=== PATIENT | female | born 1960 | race Caucasian/White ===

== ENCOUNTER 2020-12-08 08:52 | Outpatient (REF) | payer OTHER, SELFPAY ==
--- NOTE | 2020-12-08 08:58 | MM_ITS ---
EXAMINATION: MM SCREENING DIGITAL BREAST TOMOSYNTHESIS, BILATERAL CLINICAL INFORMATION: Screening. Asymptomatic. The lifetime risk of breast cancer based on the Tyrer-Cuzick Model is 15%. COMPARISON: Mammography: 05/19/2019, 05/04/2018, 10/30/2017, 04/01/2017, 03/24/2017, 03/18/2016 TECHNIQUE: Digital breast tomosynthesis is performed in both the craniocaudal and mediolateral oblique views along with computer-aided detection (CAD). Synthesized 2D images are generated from the tomosynthesis. FINDINGS: The breasts are heterogeneously dense, which may obscure small masses (ACR BI-RADS breast composition Category c). The parenchymal pattern is similar to multiple prior exams dating back to 2016. Scattered asymmetries bilateral upper quadrants and MLO views are stable. There is no developing density or interval new architectural changes. No abnormal calcifications. The axilla and skin contours are unremarkable. MM/MM tomosynthesis screening BI IMPRESSION: No significant changes from prior studies. ASSESSMENT: BI-RADS 2: Benign RECOMMENDATION: Routine annual mammography screening. This patient's information was entered into a reminder system with a target due date for their next mammogram.
== END 2020-12-08 08:53 | disposition home or self-care (01) ==
LOC: HO.MAMMO 08:52
PROVIDERS: PCP Family Medicine; Visit Provider Family Medicine
DX: Z12.31 Encounter for screening mammogram for malignant neoplasm of breast (principal)
CPT/HCPCS: 77063; 77067

== ENCOUNTER 2021-12-18 08:28 | Outpatient (REF) | payer OTHER, SELFPAY ==
--- NOTE | ~2021-12-18 | MM_ITS ---
EXAMINATION: MM SCREENING DIGITAL BREAST TOMOSYNTHESIS, BILATERAL CLINICAL INFORMATION: Screening. Asymptomatic. The lifetime risk of breast cancer based on the Tyrer-Cuzick Model is 14%. COMPARISON: Mammography: 12/08/2020, 05/19/2019, 05/04/2018 TECHNIQUE: Digital breast tomosynthesis is performed in both the craniocaudal and mediolateral oblique views along with computer-aided detection (CAD). Synthesized 2D images are generated from the tomosynthesis. FINDINGS: The breasts are heterogeneously dense, which may obscure small masses (ACR BI-RADS breast composition Category c). There are no significant masses, abnormal calcifications, or other abnormalities. Parenchymal pattern is similar to prior studies. There is no developing density or architectural abnormality. The axilla and skin contours are unremarkable. No significant changes. MM/MM tomosynthesis screening BI IMPRESSION: No mammographic evidence of malignancy. ASSESSMENT: BI-RADS 1: Negative RECOMMENDATION: Routine annual mammography screening. This patient's information was entered into a reminder system with a target due date for their next mammogram.
== END 2021-12-18 08:29 | disposition home or self-care (01) ==
LOC: HO.MAMMO 08:28
PROVIDERS: PCP Family Medicine; Visit Provider Family Medicine
DX: Z12.31 Encounter for screening mammogram for malignant neoplasm of breast (principal)
CPT/HCPCS: 77063; 77067

== ENCOUNTER 2022-12-19 14:13 | Outpatient (REF) | payer OTHER, SELFPAY ==
--- NOTE | ~2022-12-19 | MM_ITS ---
EXAMINATION: MM SCREENING DIGITAL BREAST TOMOSYNTHESIS, BILATERAL CLINICAL INFORMATION: Screening. Asymptomatic. The lifetime risk of breast cancer based on the Tyrer-Cuzick Model is 16%. COMPARISON: Mammography: 12/18/2021, 12/08/2020, 05/19/2019 TECHNIQUE: Digital breast tomosynthesis is performed in both the craniocaudal and mediolateral oblique views along with computer-aided detection (CAD). Synthesized 2D images are generated from the tomosynthesis. FINDINGS: The breasts are heterogeneously dense, which may obscure small masses (ACR BI-RADS breast composition Category c). There are no significant masses, abnormal calcifications, or other abnormalities. No developing density or architectural abnormality. The axilla and skin contours are unremarkable. No significant changes from prior exams. MM/MM tomosynthesis screening BI IMPRESSION: No mammographic evidence of malignancy. ASSESSMENT: BI-RADS 1: Negative RECOMMENDATION: Routine annual mammography screening. This patient's information was entered into a reminder system with a target due date for their next mammogram.
== END 2022-12-19 14:14 | disposition home or self-care (01) ==
LOC: HO.MAMMO 14:13
PROVIDERS: PCP Family Medicine; Visit Provider Family Medicine
DX: Z12.31 Encounter for screening mammogram for malignant neoplasm of breast (principal)
CPT/HCPCS: 77063; 77067

== ENCOUNTER 2023-09-15 14:07 | Outpatient (AMB) | payer OTHER, SELFPAY ==
--- OUTSIDE RECORDS SUMMARY | 2023-09-15 14:09 | XMS_ITS | Continuity of Care Document ---
Author Name Unknown Organization [email or web address] Address [address] [place] [address]- Care Team Providers Care Drawer In Dobby Loom Name Role Phone Christiane GUTIERREZ, Kristina M Primary Care Physician [facility])[phone] Encounter [facility] Date(s): 12/28/21 - 01/27/22 [email or web address] [address] [place] [address]- [place] Allergies, Adverse Reactions, Alerts Substance Reaction Severity Status shellfish Active Shrimp vomits Active Immunizations Given and Recorded Vaccine Date Status Refusal Reason SARS-CoV-2 (COVID-19) mRNA BNT-162b2 vac 04/06/21 Given SARS-CoV-2 (COVID-19) mRNA BNT-162b2 vac 03/16/21 Given tetanus/diphtheria/pertussis, acel(Tdap) 1 03/08/21 Given tetanus/diphtheria/pertussis, acel(Tdap) 06/20/10 Given influenza virus vaccine, inactivated 09/23/14 Give n influenza virus vaccine, inactivated 2 10/24/13 Gi bharat influenza virus vaccine, inactivated 3 08/19/12 Gi bharat FluLaval (oldterm) 4 10/03/10 Given 1Result Comment: [facility]# [id number] 2Result Comment: [02/09/2014] Received at [facility] 3Admin Note: Declines 4Admin Note: REFUSED SHOT Medications Calcium And Vitamin D Combination By Mouth, 0 Refills, Maintenance, 03/13/15 14:06:50 Start Date: 03/13/15 Status: Ordered Ferrous Sulfate = 325 mg, By Mouth, Daily, 0 Refills, Maintenance, 01/24/15 9:58:35 Start Date: 3/3/15 Status: Ordered levothyroxine 0.05 mg oral tablet 1 tablet, By Mouth, Daily, # 90 tablet, 3 Refills, Maintenance, 12/28/21 10:07:00 EST, [facility]/pharmacy#[id number], 155, cm, 03/08/21 8:03:00 EDT, Height Start Date: 12/28/21 Status: Ordered simvastatin 10 mg oral tablet 10 mg, 1, tablet, By Mouth, Daily at bedtime, # 90 tablet, Refills 3, Tot. Refills 3, Maintenance, 01/16/22 14:50:00 EST, [id number] Partial fill upon patient request if the prescription is for a schedule II... Start Date: 01/16/22 Stop Date: 01/11/23 Status: Ordered Problem List Condition Effective Dates Status Health Status Inform ant Anemia(Confirmed) Active Cyst(Confirmed) 1 Active Hypercholesterolemia(Confirmed) Active Hypothyroidism(Confirmed) Active Onychomycosis(Confirmed) Active Seasonal allergic rhinitis(Confirmed) Active Vitamin D deficiency(Confirmed) Active 1inner right thigh Social History Social History Type Response Smoking Status Never (less than 100 in lifetime) entered on: 04/01/19 Sex
--- OUTSIDE RECORDS SUMMARY | 2023-09-15 14:09 | XMS_ITS | Continuity of Care Document ---
Author Name Unknown Organization [facility] [facility] Address [address] [place] [address]- Care Team Providers Care Pocket Assembler Name Role Phone Christiane GUTIERREZ, Kristina M Primary Care Physician [facility])[phone] Encounter [facility] [id number] Date(s): 01/16/22 - [facility] [address] [place] [address]- Attending Physician: Jo Perez Admitting Physician: Jo Perez Referring Physician: AdmtrJo Allergies, Adverse Reactions, Alerts Substance Reaction Severity [...] FluLaval (oldterm) 4 10/03/10 Given 1Result Comment: [facility]# [id number] 2Result Comment: [02/09/2014] Received at [facility] 3Admin Note: Declines 4Admin Note: REFUSED SHOT Medications Calcium And Vitamin D Combination By Mouth, 0 Refills, Maintenance, 03/13/15 14:06:50 Start Date: 03/13/15 Status: Ordered Ferrous Sulfate = 325 mg, By Mouth, Daily, 0 Refills, Maintenance, 01/24/15 9:58:35 Start Date: 01/24/15 Status: Ordered levothyroxine 0.05 mg oral tablet 1 tablet, By Mouth, Daily, # 90 tablet, 3 Refills, Maintenance, 12/28/21 10:07:00 EST, [facility]/pharmacy#1230, 155, cm, 03/08/21 8:03:00 EDT, Height Start Date: 12/28/21 Status: Ordered simvastatin 10 mg oral tablet 10 mg, 1, tablet, By Mouth, Daily at bedtime, # 90 tablet, Refills 3, Tot. Refills 3, Maintenance, 01/16/22 14:50:00 EST, Route to Pharmacy Electronically, [facility]/pharmacy #[id number], Partial fill upon patient request if [...]
--- OUTSIDE RECORDS SUMMARY | 2023-09-15 14:09 | XMS_ITS | Continuity of Care Document ---
Author Name Unknown Organization [facility] Address [address] [place] [address]- Care Team Providers Care Toolroom Attendant Name Role Phone Kristina Grande MD Primary Care Physician [phone] Encounter [facility] Date(s): 03/08/21 - 03/15/21 [facility] [address] [address] Attending Physician: Kristina Grande MD Allergies, Adverse Reactions, Alerts Substance Reaction Severity Status Shrimp vomits Active Immunizations Given and Recorded Vaccine Date Status Refusal Reason tetanus/diphtheria/pertussis, acel(Tdap) 1 03/08/21 Given tetanus/diphtheria/pertussis, acel(Tdap) 06/20/10 Given influenza virus vaccine, inactivated 09/23/14 Give n influenza virus vaccine, inactivated 2 10/24/13 Gi bharat influenza virus vaccine, inactivated 3 08/19/12 Gi bharat FluLaval (oldterm) 4 10/03/10 Given 1Result Comment: [facility]# [id number] 2Result Comment: [02/09/2014] Received at [facility] 3Admin Note: Declines 4Admin Note: REFUSED SHOT Medications bisacodyl 5 mg oral delayed release tablet See Instructions, PRN for constipation, 4 tablet By Mouth on prep day, # 4 tablet, 0 Refills, Maintenance, 07/15/18 7:42:49 EDT, EC Tablet Start Date: 07/15/18 Status: Ordered Calcium And Vitamin D Combination By Mouth, 0 Refills, Maintenance, 03/13/15 14:06:50 Start Date: 03/13/15 Status: Ordered Ferrous Sulfate = 325 mg, By Mouth, Daily, 0 Refills, Maintenance, 01/24/15 9:58:35 Start Date: 01/24/15 Status: Ordered levothyroxine 0.05 mg oral tablet 1 tablet, By Mouth, Daily, # 90 tablet, 3 Refills, Maintenance, 12/08/20 14:08:00 EST, [id number], 155, cm, 12/08/20 13:27:00 EST, Height Start Date: 12/08/20 Status: Ordered MiraLax oral powder for reconstitution See Instructions, mix with gatorade per instuction sheet, # 255 Gm, 0 Refills, Maintenance, 07/15/18 7:53:13 EDT, mix with gatorade per instuction sheet Start Date: 07/15/18 Status: Ordered Problem List Condition Effective Dates Status Health Status Inform ant Anemia(Confirmed) Active Cyst(Confirmed) 1 Active Hypercholesterolemia(Confirmed) Active Hypothyroidism(Confirmed) Active Onychomycosis(Confirmed) Active Seasonal allergic rhinitis(Confirmed) Active Vitamin D deficiency(Confirmed) Active 1inner right thigh Vital Signs Most recent to oldest [Reference Range]: 1 Height 155 cm (03/08/21 8:03 AM) Weight 60.5 kg (03/08/21 8:03 AM) Oxygen Saturation [94-100 %] 96 % (03/08/21 8:03 AM) Pulse Rate [55-90 bpm] 73 bpm (03/08/21 8:03 AM) Body Mass Index [18.5-24.99] 25.18 *H* (03/08/21 8:03 AM) Blood Pressure [90-138/55-84 mm Hg] 100/ 70mm Hg (03/08/21 8:03 AM) Blood pressure sites Arm, left (03/08/21 8:03 AM) Weight Obtained Via Standing scale (03/08/21 8:03 AM) Social History Social History Type Response Smoking Status Never (less than 100 in lifetime) entered on: 04/01/19 Sex
--- OUTSIDE RECORDS SUMMARY | 2023-09-15 14:09 | XMS_ITS | Continuity of Care Document ---
Author Name Unknown Organization [email or web address] Address [address] [place] [address]- Care Team Providers Care Senior Art Director Name Role Phone Christiane GUTIERREZ, Kristina Cleaning Primary Care Physician Encounter [facility] Date(s): 10/17/20 - 11/16/20 [email or web address] [address] [place] [address] Allergies, Adverse Reactions, Alerts Substance Reaction Severity Status Shrimp vomits Active Immunizations Given and Recorded Vaccine Date Status Refusal Reason influenza virus vaccine, inactivated 09/23/14 Give n influenza virus vaccine, inactivated 1 10/24/13 Gi bharat influenza virus vaccine, inactivated 2 08/19/12 Gi bharat FluLaval (oldterm) 3 10/03/10 Given tetanus/diphtheria/pertussis, acel(Tdap) 06/20/10 Given 1Result Comment: [02/09/2014] Received at [facility] 2Admin Note: Declines 3Admin Note: REFUSED SHOT Medications bisacodyl 5 mg [...] tablet, By Mouth, Daily, # 90 tablet, 0 Refills, Maintenance, 11/09/20 8:54:00 EST, [id number], 155, cm, 09/10/19 8:05:00 EDT, Height Start Date: 11/09/20 Status: Ordered MiraLax oral powder for reconstitution See Instructions, mix with gatorade per instuction sheet, # 255 Gm, 0 Refills, Maintenance, 07/15/18 7:53:13 EDT, mix with gatorade per instuction sheet Start Date: 07/15/18 Status: Ordered simvastatin 10 mg oral tablet 10 mg, 1, tablet, By Mouth, Daily at bedtime, # 90 tablet, Refills 3, Tot. Refills 3, Maintenance, 04/01/19 9:14:43 EDT, Route to Pharmacy Electronically, [id number], [id number] Start Date: 04/01/19 Status: Ordered Problem List Condition Effective Dates Status Health Status Inform ant Anemia(Confirmed) Active Cyst(Confirmed) 1 Active Hypercholesterolemia(Confirmed) Active Hypothyroidism(Confirmed) Active Onychomycosis(Confirmed) Active Seasonal allergic rhinitis(Confirmed) Active Vitamin D deficiency(Confirmed) Active 1inner right thigh Social History Social History Type Response Smoking Status Never (less than 100 in lifetime) entered on: 04/01/19 Sex
--- OUTSIDE RECORDS SUMMARY | 2023-09-15 14:09 | XMS_ITS | Continuity of Care Document ---
Author Name Unknown Organization [facility] Address [address] [place] [address]- Care Team Providers Care Calender Worker Helper Name Role Phone Christiane GUTIERREZ, Kristina Cleaning Primary Care Physician [facility] Date(s): 12/08/20 - [facility]07/[facility] [address] [place] [id number] Attending Physician: Admtr, Ar8 Admitting Physician: Admtr, Ar8 Referring Physician: Admtr, Ar8 Allergies, Adverse Reactions, Alerts Substance Reaction Severity Status Shrimp vomits Active Immunizations Given and Recorded Vaccine Date Status Refusal Reason influenza virus vaccine, inactivated 09/23/14 Give n influenza virus vaccine, inactivated 1 10/24/13 Gi bharat influenza virus vaccine, inactivated 2 08/19/12 Gi bharat FluLaval (oldterm) 3 10/03/10 Given tetanus/diphtheria/pertussis, acel(Tdap) 06/20/10 Given 1Result Comment: [02/09/2014] Received at [facility] 2Admin Note: Declines 3Admin Note: REFUSED [...]
--- OUTSIDE RECORDS SUMMARY | 2023-09-15 14:09 | XMS_ITS | Continuity of Care Document ---
Author Name Unknown Organization [facility] Address [address] [place] [address]- Care Team Providers Care Hydropress Operator Name Role Phone Christiane GUTIERREZ, Kristina Cleaning Primary Care Physician Encounter [facility] Date(s): 07/25/20 - 08/24/20 [facility] [address] [place] [address]- Allergies, Adverse Reactions, Alerts Substance Reaction Severity Status Shrimp vomits Active Immunizations Given and Recorded Vaccine Date Status Refusal Reason influenza virus vaccine, inactivated 09/23/14 Give n influenza virus vaccine, inactivated 1 10/24/13 Gi bharat influenza virus vaccine, inactivated 2 08/19/12 Gi bharat FluLaval (oldterm) 3 10/03/10 Given tetanus/diphtheria/pertussis, acel(Tdap) 06/20/10 Given 1Result Comment: [02/09/2014] Received at [facility] 2Admin Note: Declines 3Admin Note: REFUSED SHOT [...] tablet, By Mouth, Daily, # 90 tablet, 1 Refills, Maintenance, 03/02/20 10:01:00 EDT, [id number], 155, cm, 09/10/19 8:05:00 EDT, Height Start Date: 03/02/20 Status: Ordered MiraLax oral powder for reconstitution [...] 04/01/19 9:14:43 EDT, Route to Pharmacy Electronically, [id number], [id number] Start Date: 04/01/19 Status: Ordered Problem List Condition Effective Dates Status Health Status Inform ant Anemia(Confirmed) Active Cyst(Confirmed) 1 Active Hypercholesterolemia(Confirmed) Active Hypothyroidism(Confirmed) Active Onychomycosis(Confirmed) Active Seasonal allergic rhinitis(Confirmed) Active Vitamin D deficiency(Confirmed) Active 1inner right thigh Social History Social History Type Response Smoking Status Never (less than 100 in lifetime) entered on: 04/01/19 Sex
--- OUTSIDE RECORDS SUMMARY | 2023-09-15 14:09 | XMS_ITS | Continuity of Care Document ---
Author Name Unknown Organization [facility] Address [address] [place] [address]- Care Team Providers Care Catalogue Illustrator Name Role Phone Christiane GUTIERREZ, Kristina Cleaning Primary Care Physician Encounter [facility] Date(s): 05/23/20 - [facility]/22/[facility] [address] [place] [address]- Allergies, Adverse Reactions, Alerts Substance Reaction Severity Status Shrimp vomits Active Immunizations Given and Recorded Vaccine Date Status Refusal Reason influenza virus vaccine, inactivated 09/23/14 Give n influenza virus vaccine, inactivated 1 10/24/13 Gi bharat influenza virus vaccine, inactivated 2 08/19/12 Gi bharat FluLaval (oldterm) 3 10/03/10 Given tetanus/diphtheria/pertussis, acel(Tdap) 06/20/10 Given 1Result Comment: [02/09/2014] Received at [facility] 2Admin Note: Declines 3Admin Note: REFUSED SHOT [...] Refills, Maintenance, 03/02/20 10:01:00 EDT, [facility], 155, cm, 09/10/19 8:05:00 EDT, Height Start [...] 04/01/19 9:14:43 EDT, Route to Pharmacy Electronically, [id number], [id number] Start Date: 04/01/19 Status: Ordered [...]
--- OUTSIDE RECORDS SUMMARY | 2023-09-15 14:09 | XMS_ITS | Continuity of Care Document ---
Author Name Unknown Organization [facility] Address [address] [place] [address]- Care Team Providers Care Yard Spotter Name Role Phone Kristina Grande MD Primary Care Physician Encounter [facility] Date(s): 12/08/20 - 12/15/20 [facility] [address] [place] [id number] Attending Physician: Kristina Grande MD Allergies, Adverse Reactions, Alerts Substance Reaction Severity Status Shrimp vomits Active Immunizations Given and Recorded Vaccine Date Status Refusal Reason influenza virus vaccine, inactivated 09/23/14 Give n influenza virus vaccine, inactivated 1 10/24/13 Gi bharat influenza virus vaccine, inactivated 2 08/19/12 Gi bharat FluLaval (oldterm) 3 10/03/10 Given tetanus/diphtheria/pertussis, acel(Tdap) 06/20/10 Given 1Result Comment: [02/09/2014] Received at [facility] 2Admin Note: Declines 3Admin Note: REFUSED SHOT [...] tablet, 3 Refills, Maintenance, 12/08/20 14:08:00 EST, [facility]/pharmacy#1230, 155, cm, 12/08/20 13:27:00 EST, Height Start [...] oldest [Reference Range]: 1 Height 155 cm (12/08/20 1:27 PM) Social History Social History Type Response Smoking Status Never (less than 100 in lifetime) entered on: 04/01/19 Sex
--- OUTSIDE RECORDS SUMMARY | 2023-09-15 14:09 | XMS_ITS | Continuity of Care Document ---
Author Name Unknown Organization [facility] Address [address] [place] [address]- Care Team Providers Care Target Developer Name Role Phone Christiane GUTIERREZ, Kristina Cleaning Primary Care Physician Encounter [facility] Date(s): 05/23/20 - 06/22/20 [facility] [address] [place] [address]- Allergies, Adverse Reactions, Alerts Substance Reaction Severity Status Shrimp vomits Active Immunizations Given and Recorded Vaccine Date Status Refusal Reason influenza virus vaccine, inactivated 09/23/14 Give n influenza virus vaccine, inactivated 1 10/24/13 Gi bharat influenza virus vaccine, inactivated 2 08/19/12 Gi bharat FluLaval (oldterm) 3 10/03/10 Given tetanus/diphtheria/pertussis, acel(Tdap) 06/20/10 Given 1Result Comment: [02/09/2014] Received at [facility] 2Admin Note: Declines 3Admin Note: REFUSED [...] Refills, Maintenance, 03/02/20 10:01:00 EDT, [facility], 155, cm, 09/10/19 8:05:00 EDT, Height Start [...] 04/01/19 9:14:43 EDT, Route to Pharmacy Electronically, [id number], [id number] Start Date: 04/01/19 Status: Ordered Problem List Condition Effective Dates Status Health Status Inform ant Anemia(Confirmed) Active Cyst(Confirmed) 1 Active Hypercholesterolemia(Confirmed) Active Hypothyroidism(Confirmed) Active Onychomycosis(Confirmed) Active Seasonal allergic rhinitis(Confirmed) Active Vitamin D deficiency(Confirmed) Active 1inner right thigh Social History Social History Type Response Smoking Status Never (less than 100 in lifetime) entered on: 04/01/19 Sex
--- OUTSIDE RECORDS SUMMARY | 2023-09-15 14:09 | XMS_ITS | Continuity of Care Document ---
Author Name Unknown [facility] Address [address] [place] [address]- Care Team Providers Care Broadband Installer Name Role Phone Christiane GUTIERREZ, Kristina Cleaning Primary Care Physician Encounter [facility] Date(s): 07/11/20 - 08/10/20 [facility] [address] [place] [address]- Allergies, Adverse Reactions, Alerts Substance Reaction Severity Status Shrimp vomits Active Immunizations Given and Recorded Vaccine Date Status Refusal Reason influenza virus vaccine, inactivated 09/23/14 Give n influenza virus vaccine, inactivated 1 10/24/13 Gi bharat influenza virus vaccine, inactivated 2 08/19/12 Gi bharat FluLaval (oldterm) 3 10/03/10 Given tetanus/diphtheria/pertussis, acel(Tdap) 06/20/10 Given 1Result Comment: [02/09/2014] Received at [facility] 2Admin Note: Declines 3Admin Note: REFUSED [...] Refills, Maintenance, 03/02/20 10:01:00 EDT, [facility], 155, cm, 09/10/19 8:05:00 EDT, Height Start [...] 04/01/19 9:14:43 EDT, Route to Pharmacy Electronically, [id number], [id number] Start Date: 04/01/19 Status: Ordered [...]
--- OUTSIDE RECORDS SUMMARY | 2023-09-15 14:09 | XMS_ITS | Continuity of Care Document ---
Author Name Unknown Organization [facility] Address [address] [place] [address]- Care Team Providers Care Pole Framer Machine Name Role Phone Kristina Grande MD Primary Care Physician Encounter [facility] Date(s): 01/04/20 - 05/03/20 [facility] [address] [address]- Attending Physician: Kristina Grande MD Allergies, Adverse Reactions, Alerts Substance Reaction Severity Status Shrimp vomits Active Immunizations Given and Recorded Vaccine Date Status Refusal Reason influenza virus vaccine, inactivated 09/23/14 Give n influenza virus vaccine, inactivated 1 10/24/13 Gi bharat influenza virus vaccine, inactivated 2 08/19/12 Gi bharat FluLaval (oldterm) 3 10/03/10 Given tetanus/diphtheria/pertussis, acel(Tdap) 06/20/10 Given 1Result Comment: [02/09/2014] Received at [facility] 2Admin Note: Declines 3Admin Note: REFUSED SHOT [...] Refills, Maintenance, 03/02/20 10:01:00 EDT, [facility], 155, cm, 09/10/19 8:05:00 EDT, Height Start [...] 04/01/19 9:14:43 EDT, Route to Pharmacy Electronically, [id number], [id number] Start Date: 04/01/19 Status: Ordered Problem List Condition Effective Dates Status Health Status Inform ant Anemia(Confirmed) Active Cyst(Confirmed) 1 Active Hypercholesterolemia(Confirmed) Active Hypothyroidism(Confirmed) Active Onychomycosis(Confirmed) Active Seasonal allergic rhinitis(Confirmed) Active Vitamin D deficiency(Confirmed) Active 1inner right thigh Social History Social History Type Response Smoking Status Never (less than 100 in lifetime) entered on: 04/01/19 Sex
--- OUTSIDE RECORDS SUMMARY | 2023-09-15 14:09 | XMS_ITS | Continuity of Care Document ---
Author Name Unknown Organization [facility] [employer] [facility] Address [address] [place] [address]- Care Team Providers Care Cook 3 Pastry Name Role Phone Kristina Grande MD Primary Care Physician ([facility])[phone] Encounter [facility] NBR [id number] Date(s): 01/16/22 - 01/23/22 [facility] [employer] Adult [facility] [address] [place] [address]- Attending Physician: Kristina Grande MD Allergies, Adverse [...] FluLaval (oldterm) 4 10/03/10 Given 1Result Comment: [facility]# [id number] 2Result Comment: [02/09/2014] Received at [facility] 3Admin Note: Declines 4Admin Note: REFUSED SHOT Medications Calcium And Vitamin D Combination By Mouth, 0 Refills, Maintenance, 03/13/15 14:06:50 Start Date: 03/13/15 Status: Ordered Ferrous Sulfate = 325 mg, By Mouth, Daily, 0 Refills, Maintenance, 01/24/15 9:58:35 Start Date: 01/24/15 Status: Ordered levothyroxine 0.05 mg oral tablet 1 tablet, By Mouth, Daily, # 90 tablet, 3 Refills, Maintenance, 12/28/21 10:07:00 EST, [facility]/pharmacy#[id number], 155, cm, 03/08/21 8:03:00 EDT, Height Start Date: 12/28/21 Status: Ordered simvastatin 10 mg oral tablet 10 mg, 1, tablet, By Mouth, Daily at bedtime, # 90 tablet, Refills 3, Tot. Refills 3, Maintenance, 01/16/22 14:50:00 EST, Route to Pharmacy Electronically, [facility]/pharmacy #[id number], Partial fill upon patient request if [...] oldest [Reference Range]: 1 Height 155 cm (01/16/22 2:39 PM) Weight 63.8 kg (01/16/22 2:39 PM) Oxygen Saturation [94-100 %] 99 % (01/16/22 2:39 PM) Pulse Rate [55-90 bpm] 79 bpm (01/16/22 2:39 PM) Body Mass Index [18.5-24.99] 26.56 *H* (01/16/22 2:39 PM) Blood Pressure [90-138/55-84 mm Hg] 116/ 62mm Hg (01/16/22 2:39 PM) Temperature [96.8-100.4 DegF] 97.6 DegF (01/16/22 2:39 PM) Liters per Minute 0 L/min (01/16/22 2:39 PM) Mode of Delivery (Oxygen) Room air (01/16/22 2:39 PM) Blood pressure sites Arm, left (01/16/22 2:39 PM) Temperature Route Temporal (01/16/22 2:39 PM) Weight Obtained Via Standing scale (01/16/22 2:39 PM) Social History Social History Type Response Smoking Status Never (less than 100 in lifetime) entered on: 04/01/19 Sex
--- OUTSIDE RECORDS SUMMARY | 2023-09-15 14:09 | XMS_ITS | Continuity of Care Document ---
Author Name Unknown Organization [facility] Adult Ri dicine Address [address] [place] [address]- Care Team Providers Care Shop Worker Name Role Phone Christiane GUTIERREZ, Kristina Cleaning Primary Care Physician [phone] Encounter [facility] Date(s): 04/03/20 - [facility]03/[facility] [address] [place] [address]- Attending Physician: Admmilagros, Jo Admitting Physician: AdmtrJo Referring Physician: Admtr, Ar8 Allergies, Adverse Reactions, Alerts Substance Reaction Severity Status Shrimp vomits Active Immunizations Given and Recorded Vaccine Date Status Refusal Reason influenza virus vaccine, inactivated 09/23/14 Give n influenza virus vaccine, inactivated 1 10/24/13 Gi bharat influenza virus vaccine, inactivated 2 08/19/12 Gi bharat FluLaval (oldterm) 3 10/03/10 Given tetanus/diphtheria/pertussis, acel(Tdap) 06/20/10 Given 1Result Comment: [02/09/2014] Received at [facility] 2Admin Note: Declines 3Admin Note: [...] Refills, Maintenance, 03/02/20 10:01:00 EDT, [id number], 155, cm, 09/10/19 8:05:00 EDT, Height Start [...] 04/01/19 9:14:43 EDT, Route to Pharmacy Electronically, [id number], [facility]/pharmacy #[id number] Start Date: 04/01/19 Status: Ordered Problem List Condition Effective Dates Status Health Status Inform ant Anemia(Confirmed) Active Cyst(Confirmed) 1 Active Hypercholesterolemia(Confirmed) Active Hypothyroidism(Confirmed) Active Onychomycosis(Confirmed) Active Seasonal allergic rhinitis(Confirmed) Active Vitamin D deficiency(Confirmed) Active 1inner right thigh Social History Social History Type Response Smoking Status Never (less than 100 in lifetime) entered on: 04/01/19 Sex
--- NOTE | 2023-09-15 14:43 | MHC.OFFWIV ---
Intake Vital Signs 09/15/23 14:51 Height 5 ft 2 in Weight 138 lb 6 oz BMI 25.3 BP 130/72 Blood Pressure Location Lt brachial Position Sitting Pulse 113 H Pulse Source Pulse Oximeter Temp 98.0 F Temp Source Temporal Artery Scan Pulse Oximetry (%) 96 Oxygen Delivery Method Room Air Intake Visit Reasons: EP, Left index finger laceration Intake Note: pt is here for c/o left index finger laceration cut finger on coffee pot Patient Tobacco Use Status: Never used Tobacco Allergies shellfish derived [SHELLFISH DERIVED] Allergy (Unknown, Verified 09/15/23 14:53) UNKNOWN shell fish Allergy (Mild, Uncoded 09/15/23 14:53) Unknown Do you need a note to return to daycare/school/sports/work: Yes PFSH Social History Patient Tobacco Use Status: Never used Tobacco Physical Exam Vital Signs: Last Vital Signs Temp 98.0 F 09/15/23 14:51 Pulse 113 H 09/15/23 14:51 BP 130/72 09/15/23 14:51 Pulse Ox 96 09/15/23 14:51 Oxygen Delivery Method Room Air 09/15/23 14:51 BMI result Body Mass Index 25.3 Office Procedures Laceration Repair Laceration repair performed by: Marcial Gardner Explained risks and benefits to parent: Yes Informed consent given: Yes Location: Left hand index finger Length: Three Sedation: No Anesthesia: 1% lidocaine Irrigation: saline Preparation: betadine Wound exploration: none Deep closure: No Skin closure: nylon Technique: Three sutures applied Topical treatment: mupiricin Tetanus toxoid ordered: No Patient tolerated procedure: well [place] [id number] Repair 2.6-7.5cm Procedure code (CPT) selection complete Assessment & Plan Assessment & Plan (1) Laceration of finger: Code(s): S61.219A - Laceration without foreign body of unspecified finger without damage to nail, initial encounter Orders: Orders Laceration repair Today S61.219A - Laceration without foreign body of unspecified finger without damage to nail, initial encounter Coding Level of Care Code Est Pt Level 3 (75806) Diagnoses Laceration of finger S61.219A
[2023-09-15 14:51] VITALS: BP 130/72; PULSE 113; TEMP 36.7; O2SAT 96; BMI 25.3
== END 2023-09-15 15:47 | disposition home or self-care (01) ==
PROVIDERS: PCP Family Medicine; Visit Provider Internal Medicine
DX: S61.219A Laceration without foreign body of unspecified finger without damage to nail, initial encounter (principal)
CPT/HCPCS: 99213

== ENCOUNTER 2023-09-22 08:48 | Outpatient (AMB) | payer OTHER, SELFPAY ==
--- NOTE | 2023-09-22 10:14 | AM.OFFWIN_ITS ---
Intake Vital Signs 09/22/23 10:15 Height 5 ft 2 in Weight 139 lb 8 oz BMI 25.5 BP 118/78 Blood Pressure Location Rt brachial Position Sitting Pulse 86 Pulse Source Pulse Oximeter Temp 97.9 F Temp Source Oral Pulse Oximetry (%) 98 Oxygen Delivery Method Room Air Intake Visit Reasons: EP Removal of stitches Intake Note: Pt presents to the office today for removal of 3 stitches on left index finger . Pt had the stitches placed on 09/15/23. Patient Tobacco Use Status: Never used Tobacco Allergies shellfish derived [SHELLFISH DERIVED] Allergy (Unknown, Verified 09/22/23 10:14) UNKNOWN shell fish Allergy (Mild, Uncoded 09/22/23 10:14) Unknown HPI EP Removal of stitches HPI Details 63-year-old female returns to the office for a sick visit. She would like the stitches removed. This stitches were inserted here last week. [facility] Social History (Updated 09/22/23 @ 10:23 by Marzena High [place]) Household Members: Spouse Housing: House Alcohol intake: never Patient Tobacco Use Status: Never used Tobacco Physical Exam Vital Signs: Last Vital Signs Temp 97.9 F 09/22/23 10:15 Pulse 86 09/22/23 10:15 BP 118/78 09/22/23 10:15 Pulse Ox 98 09/22/23 10:15 Oxygen Delivery Method Room Air 09/22/23 10:15 BMI result Body Mass Index 25.5 Skin Other: Index finger wound has healed completely. Assessment & Plan Assessment & Plan (1) Open wound of index finger: Code(s): S61.208A - Unspecified open wound of other finger without damage to nail, initial encounter Plan: Sutures removed. Patient tolerated the procedure well. Coding Level of Care Code Est Pt Level 3 (89172) Diagnoses Open wound of index finger S61.208A
[2023-09-22 10:15] VITALS: BP 118/78; PULSE 86; TEMP 36.6; O2SAT 98; BMI 25.5
== END 2023-09-22 11:09 | disposition home or self-care (01) ==
LOC: HO.HMGWI 08:48
PROVIDERS: PCP Family Medicine
DX: S61.208A Unspecified open wound of other finger without damage to nail, initial encounter (principal)
CPT/HCPCS: 99213

== ENCOUNTER 2024-01-07 07:20 | Outpatient (REF) | payer OTHER, SELFPAY | END 2024-01-07 07:21 | disposition home or self-care (01) | LOC: HO.MAMMO 07:20 | PROVIDERS: PCP Family Medicine; Visit Provider Family Medicine | DX: Z12.31 Encounter for screening mammogram for malignant neoplasm of breast (principal) | CPT/HCPCS: 77063; 77067 ==

== ENCOUNTER → 2024-01-07 07:45 | Outpatient (BNV) | payer OTHER, SELFPAY | PROVIDERS: PCP Family Medicine; Visit Provider Radiology Diagnostic Radiology | DX: Z12.31 Encounter for screening mammogram for malignant neoplasm of breast (principal) | CPT/HCPCS: 77063; 77067 ==

== ENCOUNTER 2025-01-11 10:47 | Outpatient (REF) | payer OTHER, SELFPAY ==
--- OUTSIDE RECORDS SUMMARY | 2025-01-11 11:55 | XMS_ITS | Data Portability ---
Author Organization [facility] Address [address] [place] [address] Care Team Providers Care Utility Gelatin Maker Name Role Phone PHI MCGRATH Primary Care Provider Assessment No assessment recorded. Plan of Treatment Reminders Order Date Submit Date Provider Last Modified By Organization Details Last Modified Time Details Appointments None recorded. Lab SARS CoV 2 (COVID-19) Ag, QL, IA, upper respiratory specimen 2022 023 [place] [address] _[facility], [address] [place] [address], [phone], 16:48:08 Referral None recorded. Procedures None recorded. Surgeries None recorded. Imaging None recorded. Medication Orders Paxlovid 300 mg (150 mg x 2)-100 mg tablets in a dose pack 2022 023 [facility]/Pharmacy #[id number], [address] [place], [address], 17:01:17 albuterol sulfate HFA 90 mcg/actuati on aerosol inhaler 2022 023 [facility]/Pharmacy #1230, [address] [place], [address], 17:01:17 Patient TargetsNo targets recorded. Patient Instructions Encounter Date Encounter Id Patient Instructions Last Modified By Organization Details Last Modified Time 08/27/2023 [id number] coronavirus (covid-19): care instructions [email or web address] Not available 08/27/2023 16:48:08 Reason for Referral None Reported. Results Created Date Observation Date Name Description Value Unit Range Abnormal Flag Note LastModifiedBy Organization Detail LastModifiedTime 08/27/2008/27/2023 SARS CoV 2 (COVI D-19) Ag, QL, IA, upper respi rator y speci men Unknown Analyte positi ve Not Available [facility] [address] [place], [address], 08/27/2023 16:16:41 08/27/2008/27/2023 SARS CoV 2 (COVI D-19) Ag, QL, IA, upper respi rator y speci men Unknown Analyte yes Not Available _ [facility] [address] [place], [address], 08/27/2023 16:16:41 Result Notes None recorded. Problems Name Problem SNOMED Code Status Onset Date Resolution Date Notes Provider Name and Address Organization Details Recorded Time Hypothyroidism 56885358 Active 2022 RICHIE LUPICA null, [place] - [facility] 3 16:15:39 Hypercholester olemia 55186121 Active 2022 RICHIE LUPICA null, [place] - [facility] 16:15:46 COVID-19 605564905 Active 2022 RICHIE LUPICA null, [place] - [facility] 16:16:46 Problem Notes None recorded. Medical Equipment None Reported. Allergies No known drug allergies Medications Name Sig Start Date Stop Date Status Note LastModified by Organization Details LastModified Time albuterol sulfate HFA 90 mcg/actuati on aerosol inhaler Inhale 2 puffs every 4 hours by inhalation route as needed for 5 days. 2022 active Not Available Not Available Not Avai lable levothyroxi ne daily active pt unsure of dose Not Available Not Available Not Available simvastatin daily active pt not sure of dose Not Available Not Available Not Available Paxlovid 300 mg (150 mg x 2)-100 mg tablets in a dose pack Take 1 dose pk by oral route. 2022 active Not Available Not Available Not Avai lable Vitals Date Recorded Body height Body mass index (BMI) Body weight Pain severity - 0-10 verbal numeric rating [Score] - Reported Oxygen saturation Oxygen saturation in Arterial blood by Pulse oximetry Heart rate Respiratory rate Body temperature Systolic blood pressure Diastolic blood pressure Provider Name and Address Organization Details Last Updated DateTime 157.48 cm 25.6 kg/m2 47302.9 3 g 0 96 % 96 % 99 /min 18 /min 97.5 [degF] 130 mm[Hg] 80 mm[Hg] RICHIE LEPE PA [facility] 16:45:04 Social History Question Answer Notes LastModified by Organizat ion Details LastModified Time Tobacco Smoking Status Never Smoker RICHIE dimas PA [employer] [facility] 08/27/2023 16:16:22 What Is Your Level Of Alcohol Consumption? None [email or web address] Information not available 08/27/2023 Do You Use Any Illicit Or Recreational Drugs? No [email or web address] Information not available 08/27/2023 Have You Recently Traveled Abroad? No Information not available 08/27/2023 Do You Or Have You Ever Used Any Other Forms Of Tobacco Or Nicotine? No [email or web address] Information not available 08/27/2023 Sex: Unknown Functional Status None recorded. Mental Status None recorded. Family History Relationship Description Onset Age of this Age Resolved Age Notes LastModified by Organization Details LastModified Time Mother Malignant neoplastic disease [email or web address] Not available 2022 16:16:05 Medical History No medical history recorded. Gynecological History Statement/Question Response Date of LMP Obstetrics History GPAL:G 0 P 0 0 0 0 Past Encounters Encounter ID Performer Location Encounter Start Date Encounter Closed Date Diagnosis/Indication Diagnosis SNOMED-CT Code Diagnosis ICD10 Code Diagnosis [place] [id number] [place] [address] [place] [address] 08/27/2023 15:17:49 08/27/2023 17:02:58 COVID-19 696403416 U07.1 Patient will start Paxlovid. NOt currently taking Statin and advised to hold for 3 days after completion .Discussed side effects of Paxlovid and patient states liver and kidney fucntion normal You tested positive for COVID-19, stay home for at least 5 days and isolate from others in your home.???Yo u are likely most infectious during these first 5 days. ???Wear a high-quali ty mask if you must be around others at home and in public.Do not go places where you are unable to wear a mask. For travel guidance, see CDC? s Travel webpage.Do not travel.Sta y home and separate from others as much as possible.U se a separate bathroom, if possible.T mirian steps to improve ventilatio n at home, if possible.D on? t share personal household items, like cups, towels, and utensils.M onitor your symptoms. If you have an emergency warning sign (like trouble breathing) , seek emergency medical care immediatel y. If you had symptoms and:Your symptoms are improvingY ou may end isolation after day 5 if:???You are fever-free for 24 hours (without the use of fever-redu cing medication ).Your symptoms are not improving Continue to isolate until:???Y ou are fever-free for 24 hours (without the use of fever-redu cing medication ).Your symptoms are improving. ???Regardl ess of when you end isolationU ntil at least day 11:Avoid being around people who are more likely to get very sick from COVID-19.R emember to wear a high-quali ty mask when indoors around others at home and in public.Do not go places where you are unable to wear a mask until you are able to discontinu e masking (see below).For travel guidance, see CDC? s Travel webpage. Health Concerns Section Related Observation LastModified by Organization Detai ls LastModified Time None Recorded Concern Status LastModified by Organization Details LastModified Time None Recorded Advance Directives Directive None Recorded Payers Encounter Date Sequence Insurance Name Policy Number Policy Aguilar Covered Member ID Aguilar Member ID Guarantor Name 08/27/2023 1 [facility] [id number] Kelsie Torres [id number] Kelsie Torres Notes Date Note Type Note Provider Name and Address Organization Details Recorded Time 3 text/html CoughReported bypatient.source of patient informationInformation obtained from patient; Patient arrived at Urgent Care ambulatory Quality:productive cough Severity:moderate Duration:2 days Context:Patient denies vaping; non-smoker Associated Symptoms:chills David Sin MD [address] [facility] [place], [address], [place] - [facility] 08/27/2023 18:18:12 OBGyn Episode No OBEpisode recorded.
--- OUTSIDE RECORDS SUMMARY | 2025-01-11 11:55 | XMS_ITS | Continuity of Care Document ---
Author Organization [facility] [employer] [facility] Address [address] [place] [address]- Care Team Providers Care Supervisor Travel Trailer Name Role Phone Kristina Grande MD Primary Care Physician [phone] [id number]s): 09/02[facility]24 - 12/31/24 [facility] [employer] Adult [address] [address]- Attending Physician: Kristina Grande MD Encounter Type: Pre Office Visit Allergies, Adverse Reactions, Alerts Substance Criticality Severity Reaction Reaction Severity Status shellfish Active Shrimp vomits [...] 1Result Comment: [facility]# [id number] 2Result Comment: [02/09/2014] Received at [facility] 3Admin Note: Declines 4Admin Note: REFUSED SHOT Medications Calcium And Vitamin D Combination By Mouth, 0 Refills, Maintenance, 03/13/15 2:06:50 PM EDT Start Date: 03/13/15 Status: Ordered Repeat number: 1 Ferrous Sulfate = 325 mg, By Mouth, Daily, 0 Refills, Maintenance, 01/24/15 9:58:35 AM EST Start Date: 01/24/15 Status: Ordered Repeat number: 1 levothyroxine 0.05 mg oral tablet 1 tablet, By Mouth, Daily, # 90 tablet, 3 Refills, Maintenance, 12/14/24 7:00:00 AM EST, [id number], 155, cm, 12/31/23 14:38:00 EST, Height Start Date: 12/14/24 Status: Ordered Quantity: 90.0 Unit: tablet Repeat number: 1 simvastatin 10 mg oral tablet 1, tablet, By Mouth, Daily at bedtime, # 90 tablet, Refills 1, Tot. Refills 1, Maintenance, :54:00 PM EST, Route to Pharmacy Electronically, [facility]/pharmacy #1230, 155, cm, 12/31/23 14:38:00 EST, Height Start Date: 12/12/24 Status: Ordered Quantity: 90.0 Unit: tablet Repeat number: 2 Problem List Condition Confirmation Course Effective Dates Status Health Status Informant Anemia Confirmed Active Cyst 1 Confirmed Active Chronic GERD Confirmed Active Hypercholesterolemia Confirmed Active Hypothyroidism Confirmed Active Onychomycosis Confirmed Active Seasonal allergic rhinitis Confirmed Active Vitamin D deficiency Confirmed Active 1inner right thigh Social History Social History Type Response Smoking Status Never (less than 100 in lifetime) entered on: 04/01/19 Sex Sex Representation Female (finding) Patient Care team information Care Team Personnel Name: Kristina Grande MD Position: [facility] Physician - Primary Care Member Role: PCP Address: [address] [place] [address] Telecom: Care Team Related Persons Name: CARL AGUILERA Name: SANDRA TIRADO Insurance Providers Guarantor name: JAMAL TIRADO Health Plan Information #: 1 Payer: [facility] [employer] Member Number: [id number] Policy Number: NA Group Number: [id number] Health Plan Information #: 2 Payer: [facility] Member Number: [id number] Policy Number: NA Group Number: NA
== END 2025-01-11 10:48 | disposition home or self-care (01) ==
LOC: HO.MAMMO 10:47
PROVIDERS: PCP Family Medicine; Visit Provider Family Medicine
DX: Z12.31 Encounter for screening mammogram for malignant neoplasm of breast (principal)
CPT/HCPCS: 77063; 77067

== ENCOUNTER → 2025-01-11 11:15 | Outpatient (BNV) | payer OTHER, SELFPAY | PROVIDERS: PCP Family Medicine; Visit Provider Internal Medicine | DX: Z12.31 Encounter for screening mammogram for malignant neoplasm of breast (principal) | CPT/HCPCS: 77063; 77067 ==